=== PATIENT | female | born 1985 | race African-American/Black ===

== ENCOUNTER 2016-11-22 01:31 | Emergency (ER) | payer OTHER ==
[~2016-11-22] VITALS: Ht 162.6 cm; Wt 56.0 kg
[~2016-11-22 01:31] MED LIST: BACIOIN13 TOPICAL; HYDR-3533 PO; IBUP600 PO
[2016-11-22 01:34] VITALS: BP 109/74; PULSE 81; RESP 14; TEMP 97.8; O2SAT 100
--- NOTE | 2016-11-22 02:04 | PD ---
HPI Chief Complaint: Abdominal Pain Time Seen by Provider: 02:04 Travel History International Travel<30 days: No Contact w/Intl Traveler<30days: No Traveled to known affect area: No History of Present Illness HPI 30-year-old female came to the emergency room with history of epigastric pain since past 3 days. Patient says whenever she eats the pain worsens and she gets nauseous. She has lost some weight because of this. Her vital signs were stable. Patient does not have a primary care doctor. She says she is otherwise very healthy. She tried taking Ena-Hillrose and Motrin over-the- counter but has not helped much. No radiation of the pain besides the epigastric area. The pain she described was a burning sensation. Still is in pain she said. PFSH Past Medical History Narrative Medical List of her medical, surgical, social and family history was reviewed from the nursing note Immunizations Current: Yes ?: Not LMP: 1 WK AGO : 0 Social History Alcohol Use: Yes (OCC.) Tobacco Use: Yes (HOOKAH X 3 A WEEK) Substance Use: No Allergies-Medications (Allergen,Severity, Reaction): Coded Allergies: Sulfa (Verified Allergy, Severe, SWELLING, 11/22/16) Comments List of her allergies reviewed from the nursing note. Reported Meds & Prescriptions Reported Meds & Active Scripts Active Zofran Odt (Ondansetron Odt) 4 Mg Tab 4 Mg SL Q6HR PRN Protonix (Pantoprazole Sodium) 40 Mg Tab 40 Mg PO DAILY Motrin 600 Mg Tab (Ibuprofen) 600 Mg Tab 600 Mg PO TID PRN Lortab 5 mg/325 mg (Hydrocodone/Acetaminophen 5 mg/325 mg) 1 Tab 1 Tab PO Q6H PRN Bacitracin/Neomycin/Polym (Neomycin-Bacitracin Zn-Polymyx) Op Oin 1 Applic TOPICAL BID 14 Days Narrative Medication List of her home medications reviewed from the nursing note. Review of Systems Except as stated in HPI: all other systems reviewed are Neg Physical Exam Narrative GENERAL: Awake, alert, mild distress SKIN: Warm and dry. HEAD: Atraumatic. Normocephalic. EYES: Pupils equal and round. No scleral icterus. No injection or drainage. ENT: No nasal bleeding or discharge. Mucous membranes pink and moist. NECK: Trachea midline. No JVD. CARDIOVASCULAR: Regular rate and rhythm. No murmur appreciated. RESPIRATORY: No accessory muscle use. Clear to auscultation. Breath sounds equal bilaterally. GASTROINTESTINAL: Abdomen soft, mild tenderness over epigastric area, nondistended. Hepatic and splenic margins not palpable. MUSCULOSKELETAL: No obvious deformities. No clubbing. No cyanosis. No edema. NEUROLOGICAL: Awake and alert. No obvious cranial nerve deficits. Motor grossly within normal limits. Normal speech. PSYCHIATRIC: Appropriate mood and affect; insight and judgment normal. Data Data Last Documented VS Orders Complete Blood Count With Diff (11/22/16 02:25) Comprehensive Metabolic Panel (11/22/16 02:25) Lipase (11/22/16 02:25) Iv Access Insert/Monitor (11/22/16 02:25) Ecg Monitoring (11/22/16 02:25) Oximetry (11/22/16 02:25) Ondansetron Inj (Zofran Inj) (11/22/16 02:30) Sodium Chlor 0.9% 1000 Ml Inj (Ns 1000 M (11/22/16 02:25) Sodium Chloride 0.9% Flush (Ns Flush) (11/22/16 02:30) Urinalysis - C+S If Indicated (11/22/16 02:26) Ed Urine Pregnancytest Poc (11/22/16 02:26) Ed Poc Ultrasound (11/22/16 ) Pantoprazole (Protonix) (11/22/16 05:00) Labs MDM Medical Decision Making Medical Screen Exam Complete: Yes Emergency Medical Condition: Yes Medical Record Reviewed: Yes Differential Diagnosis Acute pancreatitis, acute cholecystitis, acute gastritis Narrative Course 4:55 AM blood test results of back and within normal limit. Awaiting for the UA. My bedside ultrasound did not show any stones in the gallbladder. The gallbladder was visualized with great difficulty however. No radiologic Strange' s. Patient was given IV fluid and IV Protonix by mouth. I will discharge her home if her UA is within normal limits. Procedures Procedure Narrative Emergency department right upper quadrant ultrasound was performed with patient consent. Curvilinear probe was used in the transverse and sagittal views within the right upper quadrant revealing gallbladder without obvious wall thickening, cholecystic fluid, or cholelithiasis. EKG Prior to Arrival: No Diagnosis Primary Impression: Acute gastritis Qualified Code: K29.00 - Acute gastritis without hemorrhage, unspecified gastritis type Referrals: Primary Care Physician 2 days Additional Instructions: Please return to the ER if the condition worsens or any other new concerns. Otherwise follow-up with your primary care. Take the medication as per the prescription direction. A primary care should refer you to the environmental planner at the symptoms do not get better with the medication prescribed to. Stay away from acidic fluid like tomatoes, strawberries, tasha and limes. Med/Other Pt SpecificInfo: Prescription(s) given Scripts Ondansetron Odt (Zofran Odt)4 Mg Tab4 Mg SL Q6HR PRN (Nausea/Vomiting) #15 TAB Ref 0 Prov:Leisa Guerrero MD 11/22/16 Pantoprazole (Protonix)40 Mg Tab40 Mg PO DAILY #30 TAB Ref 0 Prov:Leisa Guerrero MD 11/22/16 Disposition: 01 DISCHARGE HOME Condition: Stable Leisa Guerrero MD Nov 22, 2016 02:04 Sodium Level 143 MEQ/L Potassium Level 3.9 MEQ/L Chloride Level 107 MEQ/L Carbon Dioxide Level 29.6 MEQ/L Anion Gap 6 MEQ/L Blood Urea Nitrogen 9 MG/DL Creatinine 0.71 MG/DL Estimat Glomerular Filtration 119 ML/MIN Rate Random Glucose 83 MG/DL Calcium Level 8.7 MG/DL Total Bilirubin 0.2 MG/DL Aspartate Amino Transf 8 U/L (AST/SGOT) Alanine Aminotransferase 11 U/L (ALT/SGPT) Alkaline Phosphatase 52 U/L Total Protein 6.7 GM/DL Albumin 3.5 GM/DL Lipase 201 U/L Urine Color LIGHT-YELLOW Urine Turbidity HAZY Urine pH 8.0 Urine Specific [place] 1.009 Urine Protein NEG mg/dL Urine Glucose (UA) NEG mg/dL Urine Ketones NEG mg/dL Urine Occult Blood NEG Urine Nitrite NEG Urine Bilirubin NEG Urine Urobilinogen LESS THAN 2.0 MG/DL Urine Leukocyte Esterase NEG Urine RBC LESS THAN 1 /hpf Urine WBC 1 /hpf Urine Squamous Epithelial 4 /hpf Cells Urine Amorphous Sediment RARE Urine Bacteria RARE /hpf Microscopic Urinalysis Comment CULT NOT INDICATED MDM Medical Decision Making Medical Screen Exam Complete: Yes Emergency Medical Condition: Yes Medical Record Reviewed: Yes Differential Diagnosis Acute pancreatitis, acute cholecystitis, acute gastritis Narrative Course 4:55 AM blood test results of back and within normal limit. Awaiting for the UA. My bedside ultrasound did not show any stones in the gallbladder. The gallbladder was visualized with great difficulty however. No radiologic Strange' s. Patient was given IV fluid and IV Protonix by mouth. I will discharge her home if her UA is within normal limits. Procedures EKG Prior to Arrival: No Diagnosis Primary Impression: Acute gastritis Qualified Code: K29.00 - Acute gastritis without hemorrhage, unspecified gastritis type Referrals: Primary Care Physician 2 days Additional Instructions: Please return to the ER if the condition worsens or any other new concerns. Otherwise follow-up with your primary care. Take the medication as per the prescription direction. A primary care should refer you to the environmental planner at the symptoms do not get better with the medication prescribed to. Stay away from acidic fluid like tomatoes, strawberries, tasha and limes. Med/Other Pt SpecificInfo: Prescription(s) given Scripts Ondansetron Odt (Zofran Odt)4 Mg Tab4 Mg SL Q6HR PRN (Nausea/Vomiting) #15 TAB Ref 0 Prov:Leisa Guerrero MD 11/22/16 Pantoprazole (Protonix)40 Mg Tab40 Mg PO DAILY #30 TAB Ref 0 Prov:Leisa Guerrero MD 11/22/16 Disposition: 01 DISCHARGE HOME Condition: Stable Leisa Guerrero MD Nov 22, 2016 02:04
[2016-11-22 02:06] VITALS: BP 109/73; PULSE 66; RESP 18; O2SAT 100
[2016-11-22] MEDS ORDERED: SODIUM CHLOR 0.9% 1000 ML INJ 1,000 ML IV SCH (02:25)
[2016-11-22] MEDS ORDERED: ONDANSETRON HCL 4 MG/2 ML VIAL IVP ONE (02:30)
[2016-11-22] MEDS ORDERED: SODIUM CHLORIDE 0.9% FLUSH 5 ML FLUSH IVF PRN (02:30)
[2016-11-22 02:48] LABS: BASOPHIL % 0.8 % (0.0-2.0); EOSINOPHIL # 0.3 TH/MM3 (0-0.4); EOSINOPHIL % 6.9 % (0.0-4.0); HEMATOCRIT 37.8 % (35.0-46.0); HEMO FLAGS DIFF FINAL; LYMPH % 42.2 % (9.0-44.0); LYMPHOCYTE # 2.1 TH/MM3 (1.0-4.8); MEAN CELL VOLUME 93.1 FL (80.0-100.0); MEAN CORPUSCULAR HEMOGLOBIN 31.2 PG (27.0-34.0); MEAN CORPUSCULAR HGB CONC 33.6 % (32.0-36.0); MONO % 8.2 % (0.0-8.0); NEUT % 41.9 % (16.0-70.0); PLATELET COUNT 171 TH/MM3 (150-450); RED BLOOD COUNT 4.06 MIL/MM3 (4.00-5.30); RED CELL DISTRIBUTION WIDTH 12.3 % (11.6-17.2); WHITE BLOOD COUNT 4.9 TH/MM3 (4.0-11.0)
[2016-11-22 03:04] LABS: ALT (GPT) 11 U/L (10-53); ANION GAP 6 MEQ/L (5-15); AST (GOT) 8 U/L (15-37); BICARBONATE 29.6 MEQ/L (21.0-32.0); BLOOD UREA NITROGEN 9 MG/DL (7-18); CHLORIDE 107 MEQ/L (98-107); GLOMERULAR FILTRATION RATE 119 ML/MIN (>89); POTASSIUM 3.9 MEQ/L (3.5-5.1); SODIUM (NA) 143 MEQ/L (136-145)
[2016-11-22 03:07] LABS: ALKALINE PHOSPHATASE 52 U/L (45-117); TOTAL BILIRUBIN ADULT 0.2 MG/DL (0.2-1.0)
[2016-11-22] MEDS ORDERED: ZOFR4TAB3 SL (04:59)
[2016-11-22] MEDS ORDERED: PROT40TA PO (04:59)
[2016-11-22] MEDS ORDERED: PANTOPRAZOLE SOD 40 MG DELAYED RELEASE TAB PO ONE (05:00)
[2016-11-22 05:12] LABS: BACTERIA, URINE RARE /hpf; BLOOD, URINE NEG (NEG); COMMENT (UR) CULT NOT INDICATED; CULTURE IF INDICATED CULT NOT INDICATED; GLUCOSE,URINE NEG (NEG); KETONE, URINE NEG (NEG); NITRITE,URINE NEG (NEG); SQUAMOUS EPITHELIAL CELL URINE 4 /hpf (0-5); URINE COLOR LIGHT-YELLOW (YELLW/STRAW)
== END 2016-11-22 05:34 | disposition home or self-care (01) ==
LOC: NEPE 01:31
DX: K29.00 Acute gastritis without bleeding (principal); R11.0 Nausea; Z72.0 Tobacco use
CPT/HCPCS: 80053; 81001; 83690; 84703; 85025; 96374; 99284; J2405; J7030

== ENCOUNTER 2016-12-07 20:55 | Emergency (ER) | payer BC, OTHER ==
[~2016-12-07] VITALS: Ht 162.6 cm; Wt 57.0 kg
[~2016-12-07 20:55] MED LIST changes: +PROT40TA PO; +ZOFR4TAB3 SL
[2016-12-07 20:57] VITALS: BP 104/56; PULSE 58; RESP 16; TEMP 97.7; O2SAT 100
[2016-12-07 23:06] LABS: BLOOD, URINE MOD (NEG); COMMENT (UR) CULTURE INDICATED; CULTURE IF INDICATED CULTURE INDICATED; GLUCOSE,URINE NEG (NEG); KETONE, URINE NEG (NEG); MUCUS URINE MOD /lpf (OCC)
[2016-12-07 23:16] LABS: NITRITE,URINE POS (NEG); URINE COLOR DARK-BROWN (YELLW/STRAW)
[2016-12-07] MEDS ORDERED: CEPH-460 PO (23:47)
--- NOTE | 2016-12-07 23:48 | PD ---
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 She describes a burning sensation. She describes dysuria and urinary frequency. She's had no nausea vomiting or fever. He states her last menstruation just started. She denies past medical surgical history. He takes no medication. She has an allergy to sulfa. She denies prior STD. She has never been . [facility] Past Medical History Medical History: Denies Significant Hx Diminished Hearing: No Immunizations Current: Yes Tetanus Vaccination: < 5 Years Influenza Vaccination: No ?: Not LMP: CURRENTLY : 0 Past Surgical History Surgical History: No Previous Surgery Social History Alcohol Use: No Tobacco Use: No Substance Use: No Allergies-Medications (Allergen,Severity, Reaction): Coded Allergies: Sulfa (Verified Allergy, Severe, SWELLING, 12/07/16) Reported Meds & Prescriptions Reported Meds & Active Scripts Active No Active Prescriptions or Reported Medications Review of Systems Except as stated in HPI: all other systems reviewed are Neg General / Constitutional: No: Fever Genitourinary: Positive: Frequency Physical Exam Narrative GENERAL: 30-year-old female pleasant well-nourished well-developed GENITOURINARY: No CMT. External genitalia normal. SKIN: Focused skin assessment warm/dry. HEAD: Atraumatic. Normocephalic. EYES: Pupils equal and round. No scleral icterus. No injection or drainage. ENT: No nasal bleeding or discharge. Mucous membranes pink and moist. NECK: Trachea midline. No JVD. CARDIOVASCULAR: Regular rate and rhythm. No murmur appreciated. RESPIRATORY: No accessory muscle use. Clear to auscultation. Breath sounds equal bilaterally. GASTROINTESTINAL: TTP suprapubic abdomen. Soft otherwise. MUSCULOSKELETAL: No obvious deformities. No clubbing. No cyanosis. No edema. NEUROLOGICAL: Awake and alert. No obvious cranial nerve deficits. Motor grossly within normal limits. Normal speech. PSYCHIATRIC: Appropriate mood and affect; insight and judgment normal. Data Data Last Documented VS Vital Signs Date Time Temp Pulse Resp B/P Pulse Ox O2 Delivery O2 Flow Rate FiO2 12/07/16 20:57 97.7 58 16 104/56 100 Room Air VS reviewed Orders Gc And Chlamydia Pcr (12/07/16 22:05) Wet Prep Profile (12/07/16 22:05) Urinalysis - C+S If Indicated (12/07/16 22:05) Ed Urine Pregnancytest Poc (12/07/16 22:05) Urine Culture (12/07/16 22:20) Labs Laboratory Tests Test 12/07/16 12/07/16 22:20 22:50 Urine Color DARK-BROWN Urine Turbidity HAZY Urine pH 6.0 Urine Specific [place] 1.032 Urine Protein 30 mg/dL Urine Glucose (UA) NEG mg/dL Urine Ketones NEG mg/dL Urine Occult Blood MOD Urine Nitrite POS Urine Bilirubin NEG Urine Urobilinogen 2.0 MG/DL Urine Leukocyte Esterase LARGE Urine RBC 18 /hpf Urine WBC 98 /hpf Urine Mucus MOD /lpf Microscopic Urinalysis Comment CULTURE INDICATED Clue Cells (Wet Prep) NONE SEEN Vaginal Trichomonas (Wet Prep) NONE SEEN Vaginal Yeast (Wet Prep) NONE SEEN MDM Medical Decision Making Medical Screen Exam Complete: Yes Emergency Medical Condition: Yes Medical Record Reviewed: Yes Differential Diagnosis IUP, UTI, ectopic , ov torsion, appendicitis, TOA, cervicitis, BV, Trichomoniasis, ov cyst, hernia, mittelschmerz, pain from menstruation Narrative Course Urinalysis reveals a UTI POC urine is negative Wet prep is negative Patient has a UTI. First dose Keflex here. Keflex prescription. Return precautions discussed. Diagnosis Primary Impression: Cystitis Referrals: Primary Care Physician as needed Additional Instructions: You have a choice when it comes to health care, and we are glad that you chose [facility]. Hopefully, we have met your expectations on today's visit. You are welcome to return to [facility] at any time, as we are committed to meeting the health care needs of our community. Med/Other Pt SpecificInfo: Prescription(s) given Scripts Cephalexin (Keflex)500 Mg Vif515 Mg PO Q12H 5 Days Ref 0 Prov:Arcadio Collins MD 12/07/16 Disposition: 01 DISCHARGE HOME Condition: Stable Arcadio Collins MD Dec 07, 2016 23:48
[2016-12-08] MEDS ORDERED: CEPHALEXIN MONOHYDRATE 500 MG CAP PO ONE
[2016-12-08 01:07] LABS: CHLAMYDIA PCR NOT DETECTED (NOT DETECT); NEISSERIA PCR NOT DETECTED (NOT DETECT)
== END 2016-12-08 00:30 | disposition home or self-care (01) ==
LOC: NEPC 20:55
DX: N30.90 Cystitis, unspecified without hematuria (principal)
CPT/HCPCS: 81001; 84703; 87086; 87210; 87491; 87591; 99283